=== PATIENT | male | born 1980 ===

== ENCOUNTER 2020-11-09 16:46 | Inpatient (IN) ==
[2020-11-09] MEDS ORDERED: Ondansetron 4 MG/2 ML VIAL IVP PRN (22:36)
[2020-11-09] MEDS ORDERED: Naloxone 0.4 MG/ML INJ IVP PRN (22:36)
[2020-11-09] MEDS ORDERED: Acetaminophen 325 MG TABLET PO PRN (22:36)
[2020-11-09] MEDS ORDERED: *HR* HYDROcodone/Acet 5/325 mg TABLET PO PRN (22:36)
[2020-11-09] MEDS ORDERED: *HR* OxyCODONE Immed Rel 5 MG TABLET PO PRN (22:36)
[2020-11-09] MEDS ORDERED: *HR* Promethazine 25 MG/ML VIAL IM PRN (22:36)
[2020-11-09] MEDS ORDERED: HYDROcodone BIT/Homatropine LQ 5 MG/5 ML UDC PO ONE (23:36)
[2020-11-09] MEDS ORDERED: *HR* LORazepam 2 MG/ML VIAL IVP ONE (23:36)
[2020-11-10 03:15] LABS: Basophils % 0.5 %; Hematocrit 40.7 % (37.5-50.1); Hemoglobin 14.1 g/dL (12.9-16.9); Immature Granulocytes % 0.7 % (0-4); Lymphocytes # 0.5 K/mcL (0.6-4.6); Lymphocytes % 11.2 %; Mean Corpuscular HGB Conc 34.6 g/dL (31.6-35.5); Mean Corpuscular Hemoglobin 29.5 pg (28.0-33.3); Mean Corpuscular Volume 85.1 fL (83.0-100.0); Mean Platelet Volume 11.3 fL (9.4-12.4); Monocytes # 0.4 K/mcL (0.0-1.3); Neutrophils # 3.2 K/mcL (1.6-8.9); Platelet Count 207 K/mcL (140-400); Red Blood Count 4.78 M/mcL (4.19-5.50); Red Cell Distribution Width 11.9 % (11.5-14.5); Segmented Neutrophils % 78.6 %; White Blood Count 4.1 K/mcL (4.3-11.1)
[2020-11-10 03:26] LABS: INR 1.2; Prothrombin Time 13.3 Seconds (9.4-12.1)
[2020-11-10 03:39] LABS: Alanine Aminotransferase 179 Units/L (7-52); Albumin 3.6 g/dL (3.5-5.7); Albumin/Globulin Ratio 1.3 (1.1-2.2); Alkaline Phosphatase 115 Units/L (34-104); Aspartate Amino Transferase 164 Units/L (13-39); BUN/Creatinine Ratio 20 (6-26); Bilirubin,Total 0.8 mg/dL (0.3-1.0); Blood Urea Nitrogen 15 mg/dL (6-20); C-Reactive Protein 128 mg/L (Less than 10); Calcium 8.9 mg/dL (8.6-10.3); Carbon Dioxide 22 mEq/L (23-29); Chloride 107 mEq/L (98-107); Chol/HDL Ratio 3.3 (0-4.9); Cholesterol 129 mg/dL (< 200); Globulin 2.8 g/dL (2.4-3.5); Glucose 139 mg/dL (70-105); HDL Cholesterol 39 mg/dL (40-59); LDL Cholesterol,Calculated 73 mg/dL (< 100); Lactate Dehydrogenase 549 Units/L (140-271); Magnesium 2.1 mg/dL (1.6-2.6); Osmolality,Calculated 289 (280-300); Potassium 3.8 mEq/L (3.5-5.1); Sodium 138 mEq/L (136-145); Total Protein 6.4 g/dL (6.4-8.9); Triglycerides 84 mg/dL (< 150); eGFR For African Americans > 60 (> 60); eGFR For Non-African Americans > 60 (> 60)
[2020-11-10 03:47] LABS: Platelet Estimate Normal (Normal); Reactive Lymphocytes Present (Not Present)
[2020-11-10 04:15] LABS: Ferritin > 1500 ng/mL (20-250)
[2020-11-10] MEDS: Ipratropium 1 PUFF INHALER IH SCH ×5 (08:05→23:22)
[2020-11-10] MEDS ORDERED: Dexamethasone Sodium Phos/PF 10 MG/ML VIAL IVP SCH (09:00)
[2020-11-10] MEDS: Chlorhexidine Rinse 15 ML MOUTHWASH MM SCH ×2 (09:53→21:15)
[2020-11-10] MEDS: Artificial Tears SOLN 15 ML BOTTLE BOTH EYES SCH ×4 (09:53→21:16)
[2020-11-10] MEDS: Multivit/Ca/Min/Fe/FA 1 TAB TABLET PO SCH (09:53)
[2020-11-10] MEDS: Cholecalciferol (D-3) 1,000 UNIT (25MCG) TABLET PO SCH (09:53)
[2020-11-10] MEDS: Saline Nasal Spray 44 ML BOTTLE NS SCH ×5 (09:54→21:15)
[2020-11-10] MEDS: Remdesivir 100 MG in 0.9 % Sodium Chloride 100 ML IVPB SCH (09:55)
[2020-11-10] MEDS: Saliva Stimulant 44.3ml BOTTLE PO PRN ×2 (09:55→21:16)
[2020-11-10] MEDS ORDERED: Dexamethasone Sodium Phos/PF 10 MG/ML VIAL IVP ONE (11:06)
[2020-11-10 12:57] LABS: ABG Base Excess -2 mEq/L (-2 to 3); ABG HCO3 21 mEq/L (21-27); ABG Oxygen Saturation 91 % (95-98); ABG PCO2 30 mmHg (35-45); ABG PH 7.45 pH Units (7.32-7.45); ABG PO2 58 mmHg (85-104); ABG TCO2 22 mEq/L (20-26); Blood Gas Modality NIV
[2020-11-10] MEDS: Furosemide 20 MG/2 ML VIAL IVP SCH (14:03)
[2020-11-10] MEDS: Benzonatate 100 MG CAPSULE PO PRN (14:04)
[2020-11-10] MEDS ORDERED: SODIUM CHLORIDE 0.9% IVPB ONE (15:00)
[2020-11-10] MEDS ORDERED: TOCILIZUMAB IVPB ONE (15:00)
[2020-11-10] MEDS ORDERED: Dextrose Gel 15 GM/37.5 ML TUBE PO PRN ×2 (15:54)
[2020-11-10] MEDS ORDERED: *HR* Dextrose 50 % in Water (Syg) 50 ML SYRINGE IVP PRN (15:54)
[2020-11-10] MEDS ORDERED: D5% in Water 1,000 ML IVC PRN (15:54)
[2020-11-10] MEDS: Insulin LISPRO 300 UNITS/3 ML VIAL SUBQ SCH (18:43)
[2020-11-10] MEDS: *HR* LORazepam 0.5 MG TABLET PO PRN (21:15)
[2020-11-10 22:08] LABS: Estimated Average Glucose 126 mg/dl
[2020-11-11] MEDS: Ipratropium 1 PUFF INHALER IH SCH ×6 (03:37→23:27)
[2020-11-11] MEDS: Saline Nasal Spray 44 ML BOTTLE NS SCH ×5 (04:29→20:53)
[2020-11-11 04:56] LABS: Basophils % 0.2 %; Hematocrit 41.4 % (37.5-50.1); Hemoglobin 14.7 g/dL (12.9-16.9); Immature Granulocytes % 0.4 % (0-4); Lymphocytes # 0.5 K/mcL (0.6-4.6); Lymphocytes % 9.3 %; Mean Corpuscular HGB Conc 35.5 g/dL (31.6-35.5); Mean Corpuscular Hemoglobin 30.2 pg (28.0-33.3); Mean Platelet Volume 11.4 fL (9.4-12.4); Monocytes # 0.4 K/mcL (0.0-1.3); Monocytes % 7.8 %; Neutrophils # 4.4 K/mcL (1.6-8.9); Platelet Count 196 K/mcL (140-400); Red Blood Count 4.87 M/mcL (4.19-5.50); Red Cell Distribution Width 11.8 % (11.5-14.5); Segmented Neutrophils % 82.3 %; White Blood Count 5.4 K/mcL (4.3-11.1)
[2020-11-11] MEDS ORDERED: *HR* LORazepam 2 MG/ML VIAL IVP ONE (05:06)
[2020-11-11 05:21] LABS: Alanine Aminotransferase 156 Units/L (7-52); Albumin 3.6 g/dL (3.5-5.7); Albumin/Globulin Ratio 1.2 (1.1-2.2); Alkaline Phosphatase 104 Units/L (34-104); Aspartate Amino Transferase 69 Units/L (13-39); BUN/Creatinine Ratio 29 (6-26); Blood Urea Nitrogen 22 mg/dL (6-20); C-Reactive Protein 51 mg/L (Less than 10); Calcium 8.9 mg/dL (8.6-10.3); Carbon Dioxide 23 mEq/L (23-29); Chloride 106 mEq/L (98-107); Globulin 2.9 g/dL (2.4-3.5); Glucose 144 mg/dL (70-105); Lactate Dehydrogenase 422 Units/L (140-271); Magnesium 2.1 mg/dL (1.6-2.6); Osmolality,Calculated 294 (280-300); Phosphorous 4.1 mg/dL (2.7-4.5); Potassium 3.9 mEq/L (3.5-5.1); Sodium 139 mEq/L (136-145); Total Protein 6.5 g/dL (6.4-8.9); eGFR For African Americans > 60 (> 60); eGFR For Non-African Americans > 60 (> 60)
[2020-11-11] MEDS: *HR* Enoxaparin 40 MG/0.4 ML SYRINGE SQ SCH (05:53)
[2020-11-11 05:54] LABS: Platelet Estimate Normal (Normal); Reactive Lymphocytes Present (Not Present)
[2020-11-11 06:08] LABS: Ferritin 1202 ng/mL (20-250)
[2020-11-11] MEDS: Insulin LISPRO 300 UNITS/3 ML VIAL SUBQ SCH ×3 (07:17→17:45)
[2020-11-11] MEDS: Dexamethasone Sodium Phos/PF 10 MG/ML VIAL IVP SCH (08:43)
[2020-11-11] MEDS: Chlorhexidine Rinse 15 ML MOUTHWASH MM SCH ×2 (08:44→20:52)
[2020-11-11] MEDS: Furosemide 20 MG/2 ML VIAL IVP SCH (08:44)
[2020-11-11] MEDS: Cholecalciferol (D-3) 1,000 UNIT (25MCG) TABLET PO SCH (08:44)
[2020-11-11] MEDS: Multivit/Ca/Min/Fe/FA 1 TAB TABLET PO SCH (08:44)
[2020-11-11] MEDS: Artificial Tears SOLN 15 ML BOTTLE BOTH EYES SCH ×4 (08:48→20:53)
[2020-11-11] MEDS: Remdesivir 100 MG in 0.9 % Sodium Chloride 100 ML IVPB SCH (08:53)
[2020-11-12] MEDS: *HR* LORazepam 0.5 MG TABLET PO PRN ×2 (00:15→20:27)
[2020-11-12] MEDS: Saline Nasal Spray 44 ML BOTTLE NS SCH ×7 (00:17→23:03)
[2020-11-12] MEDS: Ipratropium 1 PUFF INHALER IH SCH ×6 (04:01→23:46)
[2020-11-12] MEDS: *HR* Enoxaparin 40 MG/0.4 ML SYRINGE SQ SCH (05:52)
[2020-11-12 06:37] LABS: Basophils % 0.1 %; Hematocrit 41.5 % (37.5-50.1); Hemoglobin 14.8 g/dL (12.9-16.9); Immature Granulocytes % 0.5 % (0-4); Lymphocytes # 0.8 K/mcL (0.6-4.6); Lymphocytes % 10.2 %; Mean Corpuscular HGB Conc 35.7 g/dL (31.6-35.5); Mean Corpuscular Hemoglobin 30.3 pg (28.0-33.3); Mean Corpuscular Volume 84.9 fL (83.0-100.0); Monocytes # 0.5 K/mcL (0.0-1.3); Monocytes % 6.3 %; Neutrophils # 6.1 K/mcL (1.6-8.9); Platelet Count 193 K/mcL (140-400); Red Blood Count 4.89 M/mcL (4.19-5.50); Red Cell Distribution Width 11.5 % (11.5-14.5); Segmented Neutrophils % 82.9 %; White Blood Count 7.4 K/mcL (4.3-11.1)
[2020-11-12 07:21] LABS: Alanine Aminotransferase 175 Units/L (7-52); Albumin 3.4 g/dL (3.5-5.7); Albumin/Globulin Ratio 1.3 (1.1-2.2); Alkaline Phosphatase 105 Units/L (34-104); Aspartate Amino Transferase 68 Units/L (13-39); BUN/Creatinine Ratio 32 (6-26); Blood Urea Nitrogen 26 mg/dL (6-20); Calcium 8.8 mg/dL (8.6-10.3); Carbon Dioxide 25 mEq/L (23-29); Chloride 106 mEq/L (98-107); Globulin 2.7 g/dL (2.4-3.5); Glucose 108 mg/dL (70-105); Osmolality,Calculated 293 (280-300); Potassium 3.9 mEq/L (3.5-5.1); Sodium 139 mEq/L (136-145); Total Protein 6.1 g/dL (6.4-8.9); eGFR For African Americans > 60 (> 60); eGFR For Non-African Americans > 60 (> 60)
[2020-11-12] MEDS: Insulin LISPRO 300 UNITS/3 ML VIAL SUBQ SCH ×3 (08:11→17:53)
[2020-11-12] MEDS ORDERED: Isovue-370 500 ML BOTTLE IVP ONE (08:13)
[2020-11-12 08:58] LABS: C-Reactive Protein 24 mg/L (Less than 10)
[2020-11-12] MEDS: Dexamethasone Sodium Phos/PF 10 MG/ML VIAL IVP SCH (09:05)
[2020-11-12] MEDS: Cholecalciferol (D-3) 1,000 UNIT (25MCG) TABLET PO SCH (09:06)
[2020-11-12] MEDS: Furosemide 20 MG/2 ML VIAL IVP SCH (09:06)
[2020-11-12] MEDS: Chlorhexidine Rinse 15 ML MOUTHWASH MM SCH ×2 (09:06→20:27)
[2020-11-12] MEDS: Benzonatate 100 MG CAPSULE PO PRN (09:07)
[2020-11-12] MEDS: Multivit/Ca/Min/Fe/FA 1 TAB TABLET PO SCH (09:07)
[2020-11-12] MEDS: Remdesivir 100 MG in 0.9 % Sodium Chloride 100 ML IVPB SCH (09:07)
[2020-11-12] MEDS: Artificial Tears SOLN 15 ML BOTTLE BOTH EYES SCH ×4 (09:07→20:28)
[2020-11-12] MEDS ORDERED: *HR* Heparin 5,000 UNIT/ML VIAL IVP ONE (10:39)
[2020-11-12] MEDS ORDERED: *HR* Heparin 5,000 UNIT/ML VIAL IVP PRN (10:39)
[2020-11-12] MEDS ORDERED: Perflutren Lipid Microsphere 1.3 ML in 0.9 % Sodium Chloride 8.7 ML IVP PRN (10:40)
[2020-11-12 12:10] LABS: Heparin anti-factor XA UFH 0.17 IU/mL (0.30-0.70)
[2020-11-12 12:11] LABS: INR 1.3; Prothrombin Time 14.8 Seconds (9.4-12.1)
[2020-11-12] MEDS: Heparin 25,000UNIT/250ML 1/2NS 25,000 UNIT/250 ML IV.SOLN IVC SCH (12:33)
[2020-11-12 13:08] LABS: Hematocrit 43.8 % (37.5-50.1); Hemoglobin 15.5 g/dL (12.9-16.9); Mean Corpuscular HGB Conc 35.4 g/dL (31.6-35.5); Mean Corpuscular Hemoglobin 29.8 pg (28.0-33.3); Mean Corpuscular Volume 84.1 fL (83.0-100.0); Mean Platelet Volume 11.4 fL (9.4-12.4); Platelet Count 189 K/mcL (140-400); Red Blood Count 5.21 M/mcL (4.19-5.50); Red Cell Distribution Width 11.6 % (11.5-14.5); White Blood Count 7.4 K/mcL (4.3-11.1)
[2020-11-12] MEDS: Metoprolol XL (24 HR) Succ 25 MG TAB.ER.24H PO SCH (17:50)
[2020-11-12] MEDS: Melatonin 3 MG TABLET PO PRN (20:27)
[2020-11-12] MEDS: Saliva Stimulant 44.3ml BOTTLE PO PRN (20:28)
[2020-11-13] MEDS: *HR* LORazepam 0.5 MG TABLET PO PRN ×2 (02:51→20:29)
[2020-11-13] MEDS: Saline Nasal Spray 44 ML BOTTLE NS SCH ×6 (02:52→22:45)
[2020-11-13] MEDS: Ipratropium 1 PUFF INHALER IH SCH ×5 (03:44→20:29)
[2020-11-13 04:38] LABS: Alanine Aminotransferase 143 Units/L (7-52); Albumin 3.5 g/dL (3.5-5.7); Albumin/Globulin Ratio 1.3 (1.1-2.2); Alkaline Phosphatase 90 Units/L (34-104); Aspartate Amino Transferase 37 Units/L (13-39); Blood Urea Nitrogen 26 mg/dL (6-20); C-Reactive Protein 14 mg/L (Less than 10); Calcium 8.9 mg/dL (8.6-10.3); Carbon Dioxide 23 mEq/L (23-29); Chloride 106 mEq/L (98-107); Globulin 2.7 g/dL (2.4-3.5); Glucose 116 mg/dL (70-105); Osmolality,Calculated 292 (280-300); Sodium 138 mEq/L (136-145); Total Protein 6.2 g/dL (6.4-8.9)
[2020-11-13 04:47] LABS: Heparin anti-factor XA UFH 0.28 IU/mL (0.30-0.70)
[2020-11-13 05:31] LABS: BUN/Creatinine Ratio 33 (6-26); eGFR For African Americans > 60 (> 60); eGFR For Non-African Americans > 60 (> 60)
[2020-11-13] MEDS: *HR* Heparin 5,000 UNIT/ML VIAL IVP PRN (05:38)
[2020-11-13 05:47] LABS: Basophils % 0.3 %; Eosinophils % 0.4 %; Hematocrit 44.9 % (37.5-50.1); Hemoglobin 15.6 g/dL (12.9-16.9); Immature Granulocytes % 0.9 % (0-4); Lymphocytes # 0.6 K/mcL (0.6-4.6); Lymphocytes % 7.8 %; Mean Corpuscular HGB Conc 34.7 g/dL (31.6-35.5); Mean Corpuscular Hemoglobin 29.9 pg (28.0-33.3); Mean Platelet Volume 11.4 fL (9.4-12.4); Monocytes # 0.5 K/mcL (0.0-1.3); Neutrophils # 6.8 K/mcL (1.6-8.9); Platelet Count 203 K/mcL (140-400); Red Blood Count 5.22 M/mcL (4.19-5.50); Red Cell Distribution Width 11.5 % (11.5-14.5); Segmented Neutrophils % 84.6 %
[2020-11-13] MEDS: Multivit/Ca/Min/Fe/FA 1 TAB TABLET PO SCH (08:16)
[2020-11-13] MEDS: Metoprolol XL (24 HR) Succ 25 MG TAB.ER.24H PO SCH (08:16)
[2020-11-13] MEDS: Cholecalciferol (D-3) 1,000 UNIT (25MCG) TABLET PO SCH (08:16)
[2020-11-13] MEDS: Chlorhexidine Rinse 15 ML MOUTHWASH MM SCH ×2 (08:24→20:19)
[2020-11-13] MEDS: Artificial Tears SOLN 15 ML BOTTLE BOTH EYES SCH ×4 (08:24→20:19)
[2020-11-13] MEDS: Dexamethasone Sodium Phos/PF 10 MG/ML VIAL IVP SCH (08:25)
[2020-11-13] MEDS: Furosemide 20 MG/2 ML VIAL IVP SCH (08:25)
[2020-11-13] MEDS: Insulin LISPRO 300 UNITS/3 ML VIAL SUBQ SCH ×3 (08:31→17:52)
[2020-11-13] MEDS: Remdesivir 100 MG in 0.9 % Sodium Chloride 100 ML IVPB SCH (08:33)
[2020-11-13] MEDS: Morphine Sulfate 2 MG/ML SYRINGE IVP PRN ×2 (09:27→23:28)
[2020-11-13] MEDS: Heparin 25,000UNIT/250ML 1/2NS 25,000 UNIT/250 ML IV.SOLN IVC SCH (11:12)
[2020-11-13] MEDS: Melatonin 3 MG TABLET PO PRN (20:29)
[2020-11-14] MEDS: Ipratropium 1 PUFF INHALER IH SCH ×6 (00:24→20:48)
[2020-11-14] MEDS: *HR* Heparin 5,000 UNIT/ML VIAL IVP PRN (02:50)
[2020-11-14] MEDS: Saline Nasal Spray 44 ML BOTTLE NS SCH ×5 (04:03→20:56)
[2020-11-14] MEDS: Insulin LISPRO 300 UNITS/3 ML VIAL SUBQ SCH ×3 (08:06→16:29)
[2020-11-14] MEDS: Cholecalciferol (D-3) 1,000 UNIT (25MCG) TABLET PO SCH (09:08)
[2020-11-14] MEDS: Multivit/Ca/Min/Fe/FA 1 TAB TABLET PO SCH (09:08)
[2020-11-14] MEDS: Dexamethasone Sodium Phos/PF 10 MG/ML VIAL IVP SCH (09:09)
[2020-11-14] MEDS: Furosemide 20 MG/2 ML VIAL IVP SCH (09:09)
[2020-11-14] MEDS: Chlorhexidine Rinse 15 ML MOUTHWASH MM SCH ×2 (09:09→20:55)
[2020-11-14] MEDS: Metoprolol XL (24 HR) Succ 25 MG TAB.ER.24H PO SCH (09:09)
[2020-11-14] MEDS: Artificial Tears SOLN 15 ML BOTTLE BOTH EYES SCH ×4 (09:10→20:56)
[2020-11-14] MEDS: *HR* Enoxaparin 100 MG/ML SYRINGE SQ SCH ×2 (10:40→20:55)
[2020-11-14] MEDS: *HR* LORazepam 0.5 MG TABLET PO PRN (16:18)
[2020-11-14] MEDS: Melatonin 3 MG TABLET PO PRN (22:42)
[2020-11-15] MEDS: Ipratropium 1 PUFF INHALER IH SCH ×7 (00:17→23:24)
[2020-11-15] MEDS: *HR* LORazepam 0.5 MG TABLET PO PRN ×2 (00:21→18:22)
[2020-11-15] MEDS: Saline Nasal Spray 44 ML BOTTLE NS SCH ×6 (00:26→21:52)
[2020-11-15 06:14] LABS: Hematocrit 44.1 % (37.5-50.1); Hemoglobin 15.9 g/dL (12.9-16.9); Mean Corpuscular HGB Conc 36.1 g/dL (31.6-35.5); Mean Corpuscular Volume 83.2 fL (83.0-100.0); Platelet Count 212 K/mcL (140-400); Red Cell Distribution Width 11.4 % (11.5-14.5); White Blood Count 9.1 K/mcL (4.3-11.1)
[2020-11-15 06:23] LABS: BUN/Creatinine Ratio 35 (6-26); Blood Urea Nitrogen 27 mg/dL (6-20); Carbon Dioxide 24 mEq/L (23-29); Chloride 105 mEq/L (98-107); Glucose 107 mg/dL (70-105); Osmolality,Calculated 290 (280-300); Potassium 3.9 mEq/L (3.5-5.1); Sodium 137 mEq/L (136-145); eGFR For African Americans > 60 (> 60); eGFR For Non-African Americans > 60 (> 60)
[2020-11-15] MEDS: Insulin LISPRO 300 UNITS/3 ML VIAL SUBQ SCH ×3 (07:39→17:21)
[2020-11-15] MEDS: Multivit/Ca/Min/Fe/FA 1 TAB TABLET PO SCH (10:06)
[2020-11-15] MEDS: Cholecalciferol (D-3) 1,000 UNIT (25MCG) TABLET PO SCH (10:06)
[2020-11-15] MEDS: Chlorhexidine Rinse 15 ML MOUTHWASH MM SCH ×2 (10:06→21:50)
[2020-11-15] MEDS: Metoprolol XL (24 HR) Succ 25 MG TAB.ER.24H PO SCH (10:06)
[2020-11-15] MEDS: Furosemide 20 MG/2 ML VIAL IVP SCH (10:07)
[2020-11-15] MEDS: Artificial Tears SOLN 15 ML BOTTLE BOTH EYES SCH ×4 (10:08→21:52)
[2020-11-15] MEDS: *HR* Enoxaparin 100 MG/ML SYRINGE SQ SCH ×2 (10:08→21:50)
[2020-11-16] MEDS: Saline Nasal Spray 44 ML BOTTLE NS SCH ×6 (00:15→20:28)
[2020-11-16] MEDS: Ipratropium 1 PUFF INHALER IH SCH ×6 (04:00→23:20)
[2020-11-16] MEDS: Insulin LISPRO 300 UNITS/3 ML VIAL SUBQ SCH ×3 (07:41→17:11)
[2020-11-16] MEDS: Multivit/Ca/Min/Fe/FA 1 TAB TABLET PO SCH (09:04)
[2020-11-16] MEDS: Cholecalciferol (D-3) 1,000 UNIT (25MCG) TABLET PO SCH (09:04)
[2020-11-16] MEDS: Chlorhexidine Rinse 15 ML MOUTHWASH MM SCH ×2 (09:05→20:27)
[2020-11-16] MEDS: Furosemide 20 MG/2 ML VIAL IVP SCH (09:05)
[2020-11-16] MEDS: Metoprolol XL (24 HR) Succ 25 MG TAB.ER.24H PO SCH (09:05)
[2020-11-16] MEDS: *HR* Enoxaparin 100 MG/ML SYRINGE SQ SCH ×2 (09:06→20:29)
[2020-11-16] MEDS: Artificial Tears SOLN 15 ML BOTTLE BOTH EYES SCH ×4 (09:06→20:29)
[2020-11-16] MEDS: *HR* LORazepam 0.5 MG TABLET PO PRN (20:27)
[2020-11-16] MEDS: Melatonin 3 MG TABLET PO PRN (22:05)
[2020-11-17] MEDS: Ipratropium 1 PUFF INHALER IH SCH ×5 (04:13→20:16)
[2020-11-17] MEDS: Saline Nasal Spray 44 ML BOTTLE NS SCH ×6 (04:45→23:45)
[2020-11-17 05:18] LABS: Hematocrit 45.4 % (37.5-50.1); Hemoglobin 16.4 g/dL (12.9-16.9); Mean Corpuscular HGB Conc 36.1 g/dL (31.6-35.5); Mean Platelet Volume 11.4 fL (9.4-12.4); Platelet Count 208 K/mcL (140-400); Red Blood Count 5.47 M/mcL (4.19-5.50); Red Cell Distribution Width 11.8 % (11.5-14.5); White Blood Count 9.3 K/mcL (4.3-11.1)
[2020-11-17 06:13] LABS: BUN/Creatinine Ratio 30 (6-26); Blood Urea Nitrogen 28 mg/dL (6-20); Calcium 9.3 mg/dL (8.6-10.3); Carbon Dioxide 23 mEq/L (23-29); Chloride 101 mEq/L (98-107); Glucose 147 mg/dL (70-105); Osmolality,Calculated 288 (280-300); Potassium 3.9 mEq/L (3.5-5.1); Sodium 135 mEq/L (136-145); eGFR For African Americans > 60 (> 60); eGFR For Non-African Americans > 60 (> 60)
[2020-11-17] MEDS: Insulin LISPRO 300 UNITS/3 ML VIAL SUBQ SCH ×3 (07:52→16:06)
[2020-11-17] MEDS: Cholecalciferol (D-3) 1,000 UNIT (25MCG) TABLET PO SCH (08:23)
[2020-11-17] MEDS: Multivit/Ca/Min/Fe/FA 1 TAB TABLET PO SCH (08:23)
[2020-11-17] MEDS: Chlorhexidine Rinse 15 ML MOUTHWASH MM SCH ×2 (08:23→21:31)
[2020-11-17] MEDS: Metoprolol XL (24 HR) Succ 25 MG TAB.ER.24H PO SCH (08:23)
[2020-11-17] MEDS: Heparin 25,000UNIT/250ML 1/2NS 25,000 UNIT/250 ML IV.SOLN IVC SCH (08:41)
[2020-11-17] MEDS: Artificial Tears SOLN 15 ML BOTTLE BOTH EYES SCH ×4 (08:42→21:31)
[2020-11-17] MEDS: *HR* Enoxaparin 100 MG/ML SYRINGE SQ SCH ×2 (10:45→21:30)
[2020-11-17] MEDS ORDERED: Warfarin perPT PO PRN (18:00)
[2020-11-17 18:20] LABS: INR 1.1
[2020-11-17] MEDS ORDERED: *HR* Warfarin 5 MG TABLET PO ONE (18:45)
[2020-11-17] MEDS: *HR* LORazepam 0.5 MG TABLET PO PRN (21:47)
[2020-11-17] MEDS: Melatonin 3 MG TABLET PO PRN (21:54)
[2020-11-18] MEDS: Ipratropium 1 PUFF INHALER IH SCH ×7 (00:04→23:22)
[2020-11-18] MEDS: Saline Nasal Spray 44 ML BOTTLE NS SCH ×5 (04:04→20:57)
[2020-11-18 06:37] LABS: Basophils # 0.1 K/mcL (0.0-0.2); Basophils % 0.5 %; Eosinophils # 0.1 K/mcL (0.0-0.6); Eosinophils % 1.5 %; Hematocrit 44.9 % (37.5-50.1); Hemoglobin 15.7 g/dL (12.9-16.9); Immature Granulocytes % 3.1 % (0-4); Lymphocytes # 1.3 K/mcL (0.6-4.6); Lymphocytes % 13.2 %; Mean Corpuscular Hemoglobin 29.6 pg (28.0-33.3); Mean Corpuscular Volume 84.7 fL (83.0-100.0); Mean Platelet Volume 11.9 fL (9.4-12.4); Monocytes # 0.8 K/mcL (0.0-1.3); Monocytes % 8.2 %; Neutrophils # 7.1 K/mcL (1.6-8.9); Platelet Count 190 K/mcL (140-400); Segmented Neutrophils % 73.5 %; White Blood Count 9.6 K/mcL (4.3-11.1)
[2020-11-18 06:44] LABS: INR 1.1; Prothrombin Time 12.8 Seconds (9.4-12.1)
[2020-11-18 07:00] LABS: BUN/Creatinine Ratio 35 (6-26); Blood Urea Nitrogen 28 mg/dL (6-20); Calcium 9.2 mg/dL (8.6-10.3); Carbon Dioxide 26 mEq/L (23-29); Chloride 102 mEq/L (98-107); Glucose 102 mg/dL (70-105); Osmolality,Calculated 286 (280-300); Potassium 4.2 mEq/L (3.5-5.1); Sodium 135 mEq/L (136-145); eGFR For African Americans > 60 (> 60); eGFR For Non-African Americans > 60 (> 60)
[2020-11-18] MEDS: Insulin LISPRO 300 UNITS/3 ML VIAL SUBQ SCH ×3 (08:45→16:51)
[2020-11-18] MEDS: Chlorhexidine Rinse 15 ML MOUTHWASH MM SCH ×2 (08:45→20:49)
[2020-11-18] MEDS: Cholecalciferol (D-3) 1,000 UNIT (25MCG) TABLET PO SCH (08:46)
[2020-11-18] MEDS: Multivit/Ca/Min/Fe/FA 1 TAB TABLET PO SCH (08:46)
[2020-11-18] MEDS: *HR* Enoxaparin 100 MG/ML SYRINGE SQ SCH ×2 (08:53→20:50)
[2020-11-18] MEDS: Metoprolol XL (24 HR) Succ 25 MG TAB.ER.24H PO SCH (08:54)
[2020-11-18] MEDS: Artificial Tears SOLN 15 ML BOTTLE BOTH EYES SCH ×4 (08:55→20:49)
[2020-11-18] MEDS ORDERED: *HR* Warfarin 5 MG TABLET PO ONE (18:00)
[2020-11-18] MEDS: Melatonin 3 MG TABLET PO PRN (21:00)
[2020-11-19] MEDS: Saline Nasal Spray 44 ML BOTTLE NS SCH ×6 (02:04→20:41)
[2020-11-19] MEDS: Ipratropium 1 PUFF INHALER IH SCH ×6 (03:58→23:39)
[2020-11-19 05:40] LABS: Basophils % 0.5 %; Eosinophils # 0.1 K/mcL (0.0-0.6); Eosinophils % 1.6 %; Hematocrit 41.7 % (37.5-50.1); Hemoglobin 15.3 g/dL (12.9-16.9); Immature Granulocytes % 2.8 % (0-4); Lymphocytes # 1.5 K/mcL (0.6-4.6); Lymphocytes % 16.8 %; Mean Corpuscular HGB Conc 36.7 g/dL (31.6-35.5); Mean Corpuscular Hemoglobin 30.6 pg (28.0-33.3); Mean Corpuscular Volume 83.4 fL (83.0-100.0); Mean Platelet Volume 12.4 fL (9.4-12.4); Monocytes # 0.7 K/mcL (0.0-1.3); Monocytes % 8.3 %; Platelet Count 137 K/mcL (140-400); Red Cell Distribution Width 12.1 % (11.5-14.5); White Blood Count 8.6 K/mcL (4.3-11.1)
[2020-11-19 05:48] LABS: INR 1.1; Prothrombin Time 12.2 Seconds (9.4-12.1)
[2020-11-19 05:56] LABS: BUN/Creatinine Ratio 29 (6-26); Blood Urea Nitrogen 23 mg/dL (6-20); Carbon Dioxide 27 mEq/L (23-29); Chloride 102 mEq/L (98-107); Glucose 105 mg/dL (70-105); Osmolality,Calculated 286 (280-300); Potassium 3.9 mEq/L (3.5-5.1); Sodium 136 mEq/L (136-145); eGFR For African Americans > 60 (> 60); eGFR For Non-African Americans > 60 (> 60)
[2020-11-19] MEDS: Insulin LISPRO 300 UNITS/3 ML VIAL SUBQ SCH ×3 (09:13→17:40)
[2020-11-19] MEDS: *HR* Enoxaparin 100 MG/ML SYRINGE SQ SCH ×2 (09:33→20:36)
[2020-11-19] MEDS: Cholecalciferol (D-3) 1,000 UNIT (25MCG) TABLET PO SCH (09:35)
[2020-11-19] MEDS: Chlorhexidine Rinse 15 ML MOUTHWASH MM SCH ×2 (09:35→20:36)
[2020-11-19] MEDS: dexAMETHasone 4 MG TABLET PO SCH (09:35)
[2020-11-19] MEDS: Artificial Tears SOLN 15 ML BOTTLE BOTH EYES SCH ×4 (09:35→20:41)
[2020-11-19] MEDS: Multivit/Ca/Min/Fe/FA 1 TAB TABLET PO SCH (09:35)
[2020-11-19] MEDS: Metoprolol XL (24 HR) Succ 25 MG TAB.ER.24H PO SCH (09:35)
[2020-11-19] MEDS ORDERED: *HR* Warfarin 5 MG TABLET PO ONE (18:00)
[2020-11-19] MEDS: Melatonin 3 MG TABLET PO PRN (20:50)
[2020-11-19] MEDS: *HR* LORazepam 0.5 MG TABLET PO PRN (20:50)
[2020-11-20] MEDS: Ipratropium 1 PUFF INHALER IH SCH ×5 (04:28→21:32)
[2020-11-20] MEDS: Saline Nasal Spray 44 ML BOTTLE NS SCH ×6 (05:05→21:51)
[2020-11-20 05:45] LABS: Basophils % 0.5 %; Eosinophils # 0.2 K/mcL (0.0-0.6); Hematocrit 43.2 % (37.5-50.1); Hemoglobin 15.1 g/dL (12.9-16.9); Immature Granulocytes % 2.3 % (0-4); Lymphocytes # 1.4 K/mcL (0.6-4.6); Mean Corpuscular Hemoglobin 29.3 pg (28.0-33.3); Mean Corpuscular Volume 83.9 fL (83.0-100.0); Mean Platelet Volume 11.6 fL (9.4-12.4); Monocytes # 0.7 K/mcL (0.0-1.3); Monocytes % 8.2 %; Neutrophils # 5.6 K/mcL (1.6-8.9); Platelet Count 174 K/mcL (140-400); Red Blood Count 5.15 M/mcL (4.19-5.50); Red Cell Distribution Width 12.1 % (11.5-14.5); White Blood Count 7.9 K/mcL (4.3-11.1)
[2020-11-20 05:53] LABS: BUN/Creatinine Ratio 28 (6-26); Blood Urea Nitrogen 22 mg/dL (6-20); Calcium 9.1 mg/dL (8.6-10.3); Carbon Dioxide 27 mEq/L (23-29); Chloride 103 mEq/L (98-107); Glucose 103 mg/dL (70-105); Osmolality,Calculated 290 (280-300); Potassium 3.9 mEq/L (3.5-5.1); Sodium 138 mEq/L (136-145); eGFR For African Americans > 60 (> 60); eGFR For Non-African Americans > 60 (> 60)
[2020-11-20 05:56] LABS: INR 1.4; Prothrombin Time 15.1 Seconds (9.4-12.1)
[2020-11-20] MEDS: Insulin LISPRO 300 UNITS/3 ML VIAL SUBQ SCH ×3 (09:51→16:50)
[2020-11-20] MEDS: dexAMETHasone 4 MG TABLET PO SCH (10:50)
[2020-11-20] MEDS: Chlorhexidine Rinse 15 ML MOUTHWASH MM SCH ×2 (10:50→21:51)
[2020-11-20] MEDS: Multivit/Ca/Min/Fe/FA 1 TAB TABLET PO SCH (10:51)
[2020-11-20] MEDS: Metoprolol XL (24 HR) Succ 25 MG TAB.ER.24H PO SCH (10:51)
[2020-11-20] MEDS: Artificial Tears SOLN 15 ML BOTTLE BOTH EYES SCH ×4 (10:51→21:51)
[2020-11-20] MEDS: *HR* Enoxaparin 100 MG/ML SYRINGE SQ SCH ×2 (10:52→21:51)
[2020-11-20] MEDS: Cholecalciferol (D-3) 1,000 UNIT (25MCG) TABLET PO SCH (10:52)
[2020-11-20] MEDS ORDERED: *HR* Warfarin 5 MG TABLET PO ONE (18:00)
[2020-11-20] MEDS: Melatonin 3 MG TABLET PO PRN (21:51)
[2020-11-21] MEDS: Ipratropium 1 PUFF INHALER IH SCH ×6 (00:09→20:15)
[2020-11-21] MEDS: Saline Nasal Spray 44 ML BOTTLE NS SCH ×7 (00:40→22:04)
[2020-11-21 05:27] LABS: INR 1.4; Prothrombin Time 15.2 Seconds (9.4-12.1)
[2020-11-21] MEDS: Insulin LISPRO 300 UNITS/3 ML VIAL SUBQ SCH ×3 (08:52→16:35)
[2020-11-21] MEDS: Cholecalciferol (D-3) 1,000 UNIT (25MCG) TABLET PO SCH (09:25)
[2020-11-21] MEDS: Chlorhexidine Rinse 15 ML MOUTHWASH MM SCH ×2 (09:25→21:14)
[2020-11-21] MEDS: Multivit/Ca/Min/Fe/FA 1 TAB TABLET PO SCH (09:26)
[2020-11-21] MEDS: dexAMETHasone 4 MG TABLET PO SCH (09:26)
[2020-11-21] MEDS: Artificial Tears SOLN 15 ML BOTTLE BOTH EYES SCH ×4 (09:31→21:14)
[2020-11-21] MEDS: *HR* Enoxaparin 100 MG/ML SYRINGE SQ SCH ×2 (09:34→21:14)
[2020-11-21] MEDS ORDERED: *HR* Warfarin 5 MG TABLET PO ONE (18:00)
[2020-11-21] MEDS: Melatonin 3 MG TABLET PO PRN (21:59)
[2020-11-22] MEDS: Ipratropium 1 PUFF INHALER IH SCH ×4 (00:06→11:01)
[2020-11-22] MEDS: Saline Nasal Spray 44 ML BOTTLE NS SCH ×2 (04:00→09:10)
[2020-11-22 04:36] VITALS: O2SAT 93
[2020-11-22 05:10] LABS: INR 1.7; Prothrombin Time 18.9 Seconds (9.4-12.1)
[2020-11-22 07:54] VITALS: BP 97/61; PULSE 81; TEMP 97.9
[2020-11-22] MEDS: Chlorhexidine Rinse 15 ML MOUTHWASH MM SCH (08:31)
[2020-11-22] MEDS: Multivit/Ca/Min/Fe/FA 1 TAB TABLET PO SCH (08:32)
[2020-11-22] MEDS: Cholecalciferol (D-3) 1,000 UNIT (25MCG) TABLET PO SCH (08:32)
[2020-11-22] MEDS: dexAMETHasone 4 MG TABLET PO SCH (08:32)
[2020-11-22] MEDS: Insulin LISPRO 300 UNITS/3 ML VIAL SUBQ SCH (09:10)
[2020-11-22] MEDS: Artificial Tears SOLN 15 ML BOTTLE BOTH EYES SCH (09:10)
[2020-11-22] MEDS: *HR* Enoxaparin 100 MG/ML SYRINGE SQ SCH (10:28)
[2020-11-22] MEDS ORDERED: *HR* Warfarin 5 MG TABLET PO ONE (18:00)
== END 2020-11-22 12:01 | disposition home or self-care (01) | DRG 177 ==
LOC: 2NNU → SUATTDRO 21:07 → 2ANU 11-14 14:06
PROVIDERS: ADMIT Pharmacist; ATTEND Internal Medicine